=== PATIENT | female | born 1945 | race Hispanic/Latino ===

== ENCOUNTER 2016-02-29 08:58 | Outpatient (CLI) | payer MEDICARE, OTHER ==
--- NOTE | 2016-02-29 09:30 | XRay Report ---
CHEST 2 VIEWS INDICATION: Cough. COMPARISON: 01/28/2014 FINDINGS: PA and lateral chest radiographs demonstrate normal cardiomediastinal silhouette and clear lungs. Mild aortic knob calcifications. Possible osteopenia. CONCLUSION: No acute disease. Thank you for the opportunity to participate in this patient's care.
== END 2016-02-29 08:59 | disposition home or self-care (01) ==
LOC: SPVIMAG 08:58
PROVIDERS: ATTEND Family Medicine Adult Medicine
DX: R05 Cough (principal); I70.0 Atherosclerosis of aorta
CPT/HCPCS: 71020

== ENCOUNTER 2016-06-01 09:12 | Outpatient (CLI) | payer MEDICARE, OTHER ==
--- NOTE | 2016-06-01 10:39 | Mammography Report ---
BILATERAL MAMMOGRAM: FINDINGS: The breast tissue is heterogeneously dense, which could obscure detection of small masses (approximately 50%-75% glandular). No mass, distortion, suspicious calcification, or skin change is seen. No significant change identified compared to her prior study in May 2015. CAD was utilized. IMPRESSION: Negative mammogram. There is no mammographic evidence of malignancy. RECOMMENDATION: Follow-up per ACS guidelines. BI-RADS CATEGORY: 1 = Negative ACR BI-RADS MAMMOGRAPHIC CODES: 0 = Needs additional imaging evaluation; 1 = Negative; 2 = Benign; 3 = Probably benign; 4 = Suspicious; 5 = Malignant; 6 = Known biopsy-proven malignancy COMMENT: 1. Dense breast tissue, i.e., adenosis, fibrocystic changes, etc., may obscure an underlying neoplasm. 2. Approximately 10% of cancers are not detected with mammography. 3. A negative mammography report should not delay biopsy if a clinically suspicious mass is present. COMMENT: Patient follow-up letters are generated in [employer].
== END 2016-06-01 09:13 | disposition home or self-care (01) ==
LOC: MAMMO 09:12
PROVIDERS: ATTEND Family Medicine Adult Medicine
DX: Z12.31 Encounter for screening mammogram for malignant neoplasm of breast (principal)
CPT/HCPCS: 77067; G0202

== ENCOUNTER 2017-06-04 09:03 | Outpatient (CLI) | payer MEDICARE, OTHER ==
--- NOTE | 2017-06-04 10:57 | Mammography Report ---
Screening mammogram: Routine views are compared to prior exams dating back to 2014. There is a circumscribed asymmetry noted centrally in the left breast on the CC projection which is questionably identified centrally in the lateral projection. This asymmetry has been present since 2014 but has increased in size since prior exam in 2017. The remainder of the left breast pattern as well as the right breast is unchanged since prior exam. CAD used. Impression: Interval enlargement in left breast asymmetry. Recommendation: Additional spot compression imaging and left breast ultrasound. BI-RADS CATEGORY: 0 = Needs additional imaging evaluation ACR BI-RADS MAMMOGRAPHIC CODES: 0 = Needs additional imaging evaluation; 1 = Negative; 2 = Benign; 3 = Probably benign; 4 = Suspicious; 5 = Malignant; 6 = Known biopsy-proven malignancy COMMENT: 1. Dense breast tissue, i.e., adenosis, fibrocystic changes, etc., may obscure an underlying neoplasm. 2. Approximately 10% of cancers are not detected with mammography. 3. A negative mammography report should not delay biopsy if a clinically suspicious mass is present.
== END 2017-06-04 09:04 | disposition home or self-care (01) ==
LOC: MAMMO 09:03
PROVIDERS: ATTEND Family Medicine Adult Medicine
DX: Z12.31 Encounter for screening mammogram for malignant neoplasm of breast (principal)
CPT/HCPCS: 77067

== ENCOUNTER 2017-06-14 10:39 | Outpatient (CLI) | payer MEDICARE, OTHER ==
--- NOTE | 2017-06-14 16:28 | Mammography Report ---
LEFT DIGITAL DIAGNOSTIC MAMMOGRAM and LEFT BREAST ULTRASOUND: 06/14/17 10:39:00 CLINICAL: Recall to evaluate retroareolar asymmetries. COMPARISON:06/04/17 , 06/01/16, 05/31/15 and 05/26/14 FINDINGS: ML and spot compression MLO and CC views were performed and demonstrate 2 persistent retroareolar circumscribed masses at 6 o'clock. Both demonstrate partial effacement with spot compression. The larger measures 7 mm and is approximately 3.5 cm from the nipple. The smaller one measures 5 mm and is approximately 2 cm from the nipple. No architectural distortion or suspicious calcifications. Ultrasound of left breast (including all four quadrants and the retroareolar area) was performed. An oval benign 4 mm cyst at 3 o'clock 3 cm from the nipple may correlate with the circumscribed density closer to the nipple on the mammogram. An oval cyst with few internal echoes at 5 o'clock 2 cm from the nipple measures 5 x 3 mm. IMPRESSION: Probably benign circumscribed mammographic asymmetries and probably benign cysts. BI-RADS CATEGORY: 3 - - Probably Benign RECOMMENDATION: Six month followup left mammogram and left breast ultrasound. ACR BI-RADS MAMMOGRAPHIC CODES: 0 = Needs additional imaging evaluation; 1 = Negative; 2 = Benign; 3 = Probably benign; 4 = Suspicious; 5 = Malignant; 6 = Known biopsy-proven malignancy COMMENT: 1. Dense breast tissue, i.e., adenosis, fibrocystic changes, etc., may obscure an underlying neoplasm. 2. Approximately 10% of cancers are not detected with mammography. 3. A negative mammography report should not delay biopsy if a clinically suspicious mass is present. COMMENT: Patient follow-up letters are generated via our [employer] application.
== END 2017-06-14 10:40 | disposition home or self-care (01) ==
LOC: MAMMO 10:39
PROVIDERS: ATTEND Family Medicine Adult Medicine
DX: N60.02 Solitary cyst of left breast (principal); R92.2 Inconclusive mammogram

== ENCOUNTER 2018-06-09 07:35 | Observation (INO) | payer MEDICARE, OTHER ==
[2018-06-09 08:47] LABS: Basophils % (Auto) 0.6 % (0.0-1.8); Eosinophils # (Auto) 0.2 K/mm3 (0.0-0.4); Eosinophils % (Auto) 5.5 % (0.0-4.3); Lymphocytes # (Auto) 0.9 K/mm3 (1.2-5.4); Lymphocytes % (Auto) 20.7 % (13.4-35.0); Mean Corpuscular HGB Conc 36 % (30-34); Mean Corpuscular Volume 90 fl (79-97); Monocytes # (Auto) 0.4 K/mm3 (0.0-0.8); Monocytes % (Auto) 8.2 % (0.0-7.3); Platelet Count 215 K/mm3 (140-440); Red Blood Count 4.43 M/mm3 (3.65-5.03); Red Cell Distribution Width 14.9 % (13.2-15.2)
[2018-06-09 08:54] LABS: Hematocrit 39.8 % (30.3-42.9); Hemoglobin 14.3 gm/dl (10.1-14.3)
[2018-06-09 08:59] LABS: BUN/Creatinine Ratio 22; Blood Urea Nitrogen 11 mg/dL (7-17); Calcium 8.7 mg/dL (8.4-10.2); Hemolysis Index 329
[2018-06-09] MEDS ORDERED: NACL 0.9% 500 ML 500 ML IV SCH ×2 (09:00→12:00)
[2018-06-09 09:02] LABS: INR 0.9 (0.87-1.13); Partial Thromboplastin Time 24.2 Sec. (24.2-36.6)
[2018-06-09] MEDS ORDERED: HEPARIN/NS 5000 UNIT/500ML(CATH LAB) 1,000 ML IR ONE (09:28)
[2018-06-09] MEDS ORDERED: XYLOCAINE 2% INFILTRATI ONE ×2 (09:28→10:07)
[2018-06-09] MEDS: VERSED ONE ×2 (09:55→09:58)
[2018-06-09] MEDS: CALAN ONE ×2 (09:55→10:06)
[2018-06-09] MEDS: NITROGLYCERIN SYRINGE 3 ML ONE ×2 (09:55→10:06)
[2018-06-09] MEDS: SUBLIMAZE ONE ×2 (09:55→09:58)
[2018-06-09] MEDS: HEPARIN 10,000 UNITS/10 ML ONE ×3 (09:56→10:09)
[2018-06-09] MEDS ORDERED: EFFIENT PO ONE (10:27)
[2018-06-09] MEDS ORDERED: ALUM-MAG HYDROX-SIMETH 200-200-20MG/5ML ONE (10:28)
[2018-06-09] MEDS ORDERED: ASPIRIN ONE (10:28)
[2018-06-09] MEDS ORDERED: D50W (25GM) Syringe IV PRN (11:21)
[2018-06-09] MEDS: HumaLOG SUB-Q SCH ×3 (11:46→21:59)
--- NOTE | 2018-06-09 13:03 | Cardiac Catherization Report ---
CARDIAC CATHETERIZATION REFERRING PHYSICIAN: Cyril Alfonso MD INDICATION FOR PROCEDURE: The patient is an exceedingly pleasant 72-year-old female who has been having unstable angina, chest pain at home, history of PCI, diabetes, abnormal nuclear stress test with anterior ischemia as well as inferoapical ischemia, referred for left heart catheterization. Risks, benefits, and potential alternatives explained at length prior to obtaining informed consent. PROCEDURE IN DETAIL: The patient was brought to the catheterization lab in a postabsorptive state, prepped and draped in sterile fashion. Shawn's test in right hand was normal. A 2 mL of 2% lidocaine used to anesthetize the right wrist. A standard 6-T[place] hydrophilic sheath used to cannulate the right radial artery via modified Seldinger technique. All exchanges performed to exchange a J-tip guidewire. JL3.5 catheter used to engage the left main. No dampening or ventricularization. Cineangiography performed in multiple projections. JR4 catheter used to cross the aortic valve under fluoroscopic guidance. Left ventriculography performed in 30 VILLARREAL and 30 KYRGYZ projections via hand injections, catheter flushed. Manual pullback performed with continuous pressure monitoring. Catheter used to engage the right coronary. No dampening or ventricularization. Cineangiography performed in multiple projections. DATA: Aortic pressure is 130/60, LV pressure is 130, LVEDP of 12 mmHg. Left ventriculography reveals normal systolic performance with estimated ejection fraction of 55-60%. No evidence of aortic stenosis. CORONARY ANATOMY: This is a right dominant system. Left main without significant disease, bifurcates in left anterior descending and left circumflex. Left circumflex is moderate sized vessel, courses AV groove, diminutive to AV groove circ, large OM trunk. Mild scattered luminal irregularities, but no discrete stenosis noted. LAD with a stent in the mid segment, 99% mid LAD in-stent restenosis with LIZ 1 flow. Right coronary is a large vessel, courses AV groove, distally bifurcates in the posterior and posterolateral branch giving right to left collaterals. There is an 80-90% in-stent restenosis in the mid right coronary as well. Given mixed ischemia on stress test, at this point, I believe both lesions will need to be addressed one at a time. Given the LAD is the more critical lesion, I decided to pursue this first day. Additional heparin was given. Abnormal ACT is confirmed. The patient loaded with aspirin and Effient. EBU 3.5 guide used to engage left main without difficulty, used a [place] wire to cross the lesion without difficulty. A 2.5 x 12 balloon to predilate the lesion without difficulty. Next, I used José Manuel 2.75 x 22 stent deployed at 12 RACHAEL for 30 seconds. Excellent angiographic result. Intravascular ultrasound was performed. Multiple passes were made, which revealed a well apposed and well expanded stent. No complications. Final angiogram reveals excellent result. No complications in LIZ 3 flow. I directly supervised the administration of moderate sedation with fentanyl and Versed from 09:58-10:35 a.m. No complications are noted. CONCLUSIONS: 1. Severe 2-vessel coronary artery disease with known anterior and apical ischemia in the setting of unstable angina. A. Successful IVUS guided PCI of 99% in-stent restenosis of the mid LAD stent with excellent final angiographic and ultrasonographic results. B. Approximately 80% stenosis of the dominant mid right coronary and known apical ischemia. 2. Normal LV function. 3. Normal LVEDP. At this point, standard radial care. Aspirin, Effient. The patient is clinically stable. We will stage the right coronary for tomorrow, so long as there are no issues overnight. Results of procedure explained at length to the patient and family. All questions and concerns were addressed. JOB# [id number] CLARY/TANA
[2018-06-10 04:54] LABS: Basophils % (Auto) 0.3 % (0.0-1.8); Eosinophils # (Auto) 0.2 K/mm3 (0.0-0.4); Eosinophils % (Auto) 4.5 % (0.0-4.3); Hematocrit 40.8 % (30.3-42.9); Hemoglobin 14.1 gm/dl (10.1-14.3); Lymphocytes # (Auto) 0.6 K/mm3 (1.2-5.4); Lymphocytes % (Auto) 14.2 % (13.4-35.0); Mean Corpuscular HGB Conc 35 % (30-34); Mean Corpuscular Volume 90 fl (79-97); Monocytes # (Auto) 0.4 K/mm3 (0.0-0.8); Monocytes % (Auto) 9.2 % (0.0-7.3); Platelet Count 189 K/mm3 (140-440); Red Blood Count 4.53 M/mm3 (3.65-5.03); Red Cell Distribution Width 14.5 % (13.2-15.2)
[2018-06-10 05:55] LABS: BUN/Creatinine Ratio 26; Blood Urea Nitrogen 13 mg/dL (7-17); Calcium 9.3 mg/dL (8.4-10.2); Hemolysis Index 21
[2018-06-10] MEDS ORDERED: LOPRESSOR ONE (07:47)
[2018-06-10] MEDS ORDERED: EFFIENT PO ONE (07:47)
[2018-06-10] MEDS ORDERED: HALFPRIN EC PO ONE (07:47)
[2018-06-10] MEDS: EFFIENT PO SCH ×2 (07:52→12:26)
[2018-06-10] MEDS: TOPROL XL PO SCH ×2 (08:00→13:22)
[2018-06-10] MEDS: HumaLOG SUB-Q SCH ×4 (08:05→21:41)
[2018-06-10] MEDS ORDERED: XYLOCAINE 2% INFILTRATI ONE (08:13)
[2018-06-10] MEDS ORDERED: HEPARIN/NS 5000 UNIT/500ML(CATH LAB) 1,000 ML IR ONE (08:13)
[2018-06-10] MEDS ORDERED: CALAN ONE (08:13)
[2018-06-10] MEDS ORDERED: NITROGLYCERIN SYRINGE 3 ML ONE (08:14)
[2018-06-10] MEDS ORDERED: VERSED ONE (08:14)
[2018-06-10] MEDS ORDERED: SUBLIMAZE ONE (08:14)
[2018-06-10] MEDS ORDERED: NACL 0.9% 500 ML 500 ML ONE (08:25)
[2018-06-10] MEDS: HEPARIN 10,000 UNITS/10 ML ONE ×2 (08:41→08:44)
--- NOTE | 2018-06-10 11:04 | Cardiac Catherization Report ---
REFERRING PHYSICIAN: Dr. Meri Alfonso INDICATION FOR PROCEDURE: The patient is a pleasant 72-year-old female with unstable angina, markedly abnormal stress test with anterior and inferoapical ischemia, underwent elective PCI yesterday of 99% proximal LAD stenosis, today staged PCI of 90% mid right coronary stenosis. She is on multiple antianginals. Risks, benefits, and alternatives discussed prior to obtaining informed consent. The patient already on Effient and aspirin. PROCEDURE IN DETAIL: The patient was brought to the catheterization lab in a postabsorptive state, prepped and draped in sterile fashion. Shawn test in right hand was normal. A 2 mL of 2% lidocaine used to anesthetize the right wrist. A standard 6-Telugu hydrophilic sheath used to cannulate the right radial artery via modified Seldinger technique. All exchanges performed to exchange a J-tip guidewire. JL3.5 catheter used to engage the left main. No dampening or ventricularization. Cineangiography performed in all projections. JR4 guide used to engage the right coronary, angiography performed in all projections. Angiography of the left system revealed patent stents placed in the mid LAD, LIZ 3 flow, no complications. No obstructive lesions. Right coronary reveals 90% in-stent restenosis in the mid right coronary stent, tortuous vessel. Heparin was given. Abnormal ACT is confirmed. We used a JR4 guide [place] wire, unable to deliver stent. At this point, we used a [place] wire as a shantell wire. We were able to deliver the stent to the affected lesion, dilated at 12 RACHAEL per 30 seconds. Good angiographic result. Mild dye staining proximally. Intravascular ultrasound was passed. There was a small dissection at the proximal edge of the stent. Next, we used 3.0 x 18 [place] overlapping proximally previous stent covering dissection at 12 RACHAEL for 30 seconds. Next, we used a 3.0 x 12 balloon to postdilate the entirety of both stents, 12 RACHAEL for 15 seconds each. Final angiogram revealed excellent result, dissections resolved. An intravascular ultrasound was performed, reveals well-opposed and well-expanded stent throughout. No further dissection, LIZ 3 flow, excellent angiographic result. I directly supervised administration of moderate sedation from 8:30 a.m. to 9:15 a.m. with fentanyl and Versed. CONCLUSIONS: 1. Successful staged PCI of 90% in-stent restenosis of mid right coronary. 2. Two overlapping drug-eluting stents ([place] 3.0 x 18, [place] 3.0 x 18) with excellent final angiographic and ultrasonographic results. 3. Patent left system. The patient is clinically stable, chest pain free. Continue Effient, aspirin, statin therapy, blood pressure control, standard radial care. Results of procedure discussed at length with the patient and family. All questions and concerns were addressed. We will anticipate discharge tomorrow and follow up with Dr. Meri Alfonso in the office. JOB# [id number] SBJavi/NTS
--- NOTE | 2018-06-10 11:31 | Progress Note ---
Assessment and Plan s/p PCI of LAD yesterday and PCI of RCA today. Currently stable cardiac status. Cont present cardiac regimen. Likely d/c home tomorrow AM. The patient has been seen in conjunction with Dr. Susi Alfonso who agrees with the assessment and plan of care. - Patient Problems (1) CAD (coronary artery disease) Current Visit: Yes Status: Chronic (2) Stented coronary artery Current Visit: Yes Status: Chronic (3) HTN (hypertension) Current Visit: Yes Status: Chronic (4) Diabetes Current Visit: Yes Status: Chronic (5) PVD (peripheral vascular disease) Current Visit: Yes Status: Chronic Subjective Date of service: 06/10/18 Principal diagnosis: CAD Interval history: pt for [facility]. no current cardiac complaints. Objective Last Vital Signs Temp 98.4 F 06/10/18 03:36 Pulse 69 06/10/18 10:30 Resp 20 06/10/18 10:30 BP 131/52 06/10/18 10:30 Pulse Ox 95 06/10/18 10:30 - Physical Examination General: No Apparent Distress HEENT: Positive: PERRL, Normocephaly, Mucus Membranes Moist Neck: Positive: neck supple, trachea midline Cardiac: Positive: Reg Rate and Rhythm, S1/S2 Lungs: Positive: Decreased Breath Sounds - Labs and Meds Cardiac Enzymes 06/10/18 Range/Units 04:39 CK-MB (CK-2) 3.0 (0.0-4.0) ng/mL Coagulation 06/10/18 Range/Units 04:39 PT 13.8 (12.2-14.9) Sec. INR 1.00 (0.87-1.13) CBC 06/10/18 Range/Units 04:39 WBC 4.2 L (4.5-11.0) K/mm3 RBC 4.53 (3.65-5.03) M/mm3 Hgb 14.1 (10.1-14.3) gm/dl Hct 40.8 (30.3-42.9) % Plt Count 189 (140-440) K/mm3 Lymph # 0.6 L (1.2-5.4) K/mm3 Becker # 0.4 (0.0-0.8) K/mm3 Eos # 0.2 (0.0-0.4) K/mm3 Baso # 0.0 (0.0-0.1) K/mm3 Comprehensive Metabolic Panel 06/10/18 Range/Units 04:39 Sodium 137 (137-145) mmol/L Potassium 4.9 (3.6-5.0) mmol/L Chloride 99.4 (98-107) mmol/L Carbon Dioxide 25 (22-30) mmol/L BUN 13 (7-17) mg/dL Creatinine 0.5 L (0.7-1.2) mg/dL Glucose 221 H (65-100) mg/dL Calcium 9.3 (8.4-10.2) mg/dL
--- NOTE | 2018-06-10 13:03 | XRay Report ---
AP CHEST: HISTORY: Post PCI AP view of the chest demonstrates a normal mediastinal and cardiac contour with clear lungs and normal bony and soft tissue structures. IMPRESSION: Unremarkable AP chest.
[2018-06-10] MEDS: BABY ASPIRIN PO SCH (13:21)
[2018-06-10] MEDS: ZESTRIL PO SCH (13:21)
[2018-06-11 06:16] LABS: Basophils % (Auto) 0.5 % (0.0-1.8); Eosinophils # (Auto) 0.2 K/mm3 (0.0-0.4); Eosinophils % (Auto) 4.9 % (0.0-4.3); Hematocrit 39.7 % (30.3-42.9); Hemoglobin 13.6 gm/dl (10.1-14.3); Lymphocytes # (Auto) 0.7 K/mm3 (1.2-5.4); Lymphocytes % (Auto) 15.9 % (13.4-35.0); Mean Corpuscular HGB Conc 34 % (30-34); Mean Corpuscular Volume 91 fl (79-97); Monocytes # (Auto) 0.4 K/mm3 (0.0-0.8); Monocytes % (Auto) 9.5 % (0.0-7.3); Platelet Count 205 K/mm3 (140-440); Red Blood Count 4.39 M/mm3 (3.65-5.03); Red Cell Distribution Width 15.2 % (13.2-15.2)
[2018-06-11 06:36] LABS: Creatine Kinase MB 2.6 ng/mL (0.0-4.0)
[2018-06-11 06:39] LABS: BUN/Creatinine Ratio 43; Blood Urea Nitrogen 17 mg/dL (7-17); Calcium 8.8 mg/dL (8.4-10.2); Hemolysis Index 67
[2018-06-11] MEDS: HumaLOG SUB-Q SCH ×2 (08:54→12:50)
[2018-06-11] MEDS: TOPROL XL PO SCH (10:30)
[2018-06-11] MEDS: EFFIENT PO SCH (10:30)
[2018-06-11 10:31] VITALS: BP 152/50
[2018-06-11] MEDS: ZESTRIL PO SCH (10:31)
[2018-06-11] MEDS: BABY ASPIRIN PO SCH (10:31)
--- NOTE | 2018-06-11 10:46 | Short Stay Summary ---
Short Stay Documentation Date of service: 06/11/18 - History H&P: obtained from office - Allergies and Medications Current Medications: Allergies Morpholine Analogues Allergy (Verified 06/09/18 08:09) Rash statin Adverse Reaction (Uncoded 06/09/18 08:09) Joint ache Home Medications Medication Instructions Recorded Confirmed Last Taken Type Aspirin [Aspir-Low] 81 mg PO DAILY 06/09/18 06/09/18 06/09/18 History Canagliflozin [Invokana] 150 mg PO DAILY 06/09/18 06/09/18 06/08/18 History Ergocalciferol [Vitamin D2] 50,000 units PO QWEEK 06/09/18 06/09/18 06/08/18 History Fluticasone [Flonase] 1 spray NS QDAY 06/09/18 06/09/18 06/08/18 History Icosapent Ethyl [Vascepa] 2 gram PO BID 06/09/18 06/09/18 06/08/18 History Insulin Regular, Human [Humulin R 75 unit SQ TID 06/09/18 06/09/18 06/08/18 History U-500 Kwikpen] Lisinopril [Zestril TAB] 2.5 mg PO QDAY 06/09/18 06/09/18 06/09/18 History Metoprolol Xl [Metoprolol 50 mg PO QDAY 06/09/18 06/09/18 06/08/18 History SUCCINATE ER TAB] Ranitidine HCl [Zantac 150 MG TAB] 150 mg PO DAILY 06/09/18 06/09/18 06/08/18 History Active Medications Aspirin (Baby Aspirin) 81 mg PO QDAY [facility] Last Admin: 06/11/18 10:31 Dose: 81 mg Documented by: Dextrose (D50w (25gm) Syringe) 50 ml IV PRN PRN PRN Reason: Hypoglycemia Insulin Human Lispro (Humalog) 0 unit SUB-Q [facility]; Protocol Last Admin: 06/11/18 08:54 Dose: 3 unit Documented by: Lisinopril (Zestril) 2.5 mg PO QDAY [facility] Last Admin: 06/11/18 10:31 Dose: 2.5 mg Documented by: Metoprolol Succinate (Toprol Xl) 50 mg PO QDAY [facility] Last Admin: 06/11/18 10:30 Dose: 50 mg Documented by: Prasugrel (Effient) 10 mg PO QDAY NIRMAL Last Admin: 06/11/18 10:30 Dose: 10 mg Documented by: - Physical exam General appearance: no acute distress Integumentary: no rash, no growths, no abnormal pigmentation HEENT: Atraumatic, PERRLA, EOMI Lungs: Clear to auscultation Heart: Regular rate, Normal S1, Normal S2 Gastrointestinal: normal, normoactive bowel sounds Extremities: no ischemia, pulses intact, pulses symmetrical Neurological: Normal gait, Normal speech, Strength at 5/5 X4 ext - Brief post op/procedure progress note Date of procedure: 06/10/18 Pre-op diagnosis: CAD Post-op diagnosis: same Procedure: LHC with PCI on 06/09 and 06/10 - see dictated cath reports Anesthesia: local Estimated blood loss: none Condition: stable - Hospital course Hospital course: pt presented for scheduled elective LHC and subsequently underwent PCI on both 06/09 and 06/10. She has remained clinically and hemodynamically stable throughout hospitalization and is medically stable for discharge home today. - Disposition Condition at discharge: Good Disposition: DC-01 TO HOME OR SELFCARE - Discharge Diagnoses (1) CAD (coronary artery disease) Status: Chronic (2) Stented coronary artery Status: Chronic (3) HTN (hypertension) Status: Chronic (4) Diabetes Status: Chronic (5) PVD (peripheral vascular disease) Status: Chronic (6) Statin intolerance Status: Chronic Short Stay Discharge Plan Activity: advance as tolerated Diet: low fat, low cholesterol, low salt, diabetic Wound: open to air, keep clean and dry, per your surgeon's advice Follow up with: JONY MARCUM MD [Primary Care Provider] - 7 Days QUEENIE MACIEL MD [Staff Physician] - 7 Days ([phone] f/u in 1-2 weeks ) Prescriptions: Prasugrel [Effient] 10 mg PO QDAY #30 tablet
== END 2018-06-11 13:39 | disposition home or self-care (01) ==
LOC: CATHLABREC 07:35 → 4A 11:19
PROVIDERS: ADMIT Internal Medicine; ATTEND Internal Medicine
DX: I25.10 Atherosclerotic heart disease of native coronary artery without angina pectoris (principal); I10 Essential (primary) hypertension; E11.51 Type 2 diabetes mellitus with diabetic peripheral angiopathy without gangrene; T49.0X1A Poisoning by local antifungal, anti-infective and anti-inflammatory drugs, accidental (unintentional), initial encounter; E78.5 Hyperlipidemia, unspecified; I25.2 Old myocardial infarction; Z98.61 Coronary angioplasty status; Z88.5 Allergy status to narcotic agent; Z82.49 Family history of ischemic heart disease and other diseases of the circulatory system; Z79.899 Other long term (current) drug therapy
CPT/HCPCS: 36415; 71045; 80048; 82550; 82553; 82962; 84484; 85025; 85347; 85610; 85730; 92978; 93005; 93010; 93458; 96372; C1725; C1753; C1769; C1874; C1887; C1894; C9600; G0378; J1644; J2250; J3010; J7040; 92928; J1815; Q9967